=== PATIENT | male | born 1985 | race Hispanic/Latino ===

== ENCOUNTER 2023-04-10 07:31 | Day surgery (SDC) | payer SELFPAY ==
[2023-04-02 15:41] VITALS: BMI 32.1
[2023-04-10] MEDS ORDERED: cefTRIAXone (ROCEPHIN) 2 GM VIAL ONE (07:49)
[2023-04-10] MEDS ORDERED: Sodium Chloride 0.9% 100 ML ONE (07:50)
[2023-04-10] MEDS ORDERED: Iopamidol 15 ML ONE (08:33)
[2023-04-10] MEDS ORDERED: fentaNYL PF 100 MCG/2 ML SYRINGE ONE (08:43)
[2023-04-10] MEDS ORDERED: Lidocaine 1% PF 5 ML VIAL ONE (08:57)
[2023-04-10] MEDS ORDERED: PROPOFOL 200 MG/20 ML VIAL ONE (08:57)
[2023-04-10] MEDS ORDERED: Rocuronium Bromide 10 MG/ML (10ML VIAL) ONE (08:57)
[2023-04-10] MEDS ORDERED: Phenazopyridine HCl 100 MG TAB ONE (12:12)
[2023-04-10] MEDS ORDERED: Oxybutynin 5 MG TAB ONE (12:12)
== END 2023-04-10 14:50 | disposition home or self-care (01) ==
LOC: SDC 07:31
PROVIDERS: ATTEND Urology
PROC: 0T778DZ Dilation of Left Ureter with Intraluminal Device, Via Natural or Artificial Opening Endoscopic (ICD-10-PCS; principal; 2023-04-10)
PROC: 0TF48ZZ Fragmentation in Left Kidney Pelvis, Via Natural or Artificial Opening Endoscopic (ICD-10-PCS; principal; 2023-04-10)
DX: N20.0 Calculus of kidney (principal); R35.0 Frequency of micturition; Z79.899 Other long term (current) drug therapy
CPT/HCPCS: 74018; 74420; C1747; C1769; C2617; J0696; J2704; J3490; Q9967

== ENCOUNTER 2023-05-08 09:24 | Outpatient (CLI) | payer OTHER | END 2023-05-08 09:25 | disposition home or self-care (01) | LOC: RAD 09:24 | PROVIDERS: ATTEND Urology | DX: N20.0 Calculus of kidney (principal) | CPT/HCPCS: 74018 ==